=== PATIENT | female | born 2000 | race African-American/Black ===

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

== ENCOUNTER 2020-05-08 23:14 | Emergency (ER) | payer MEDICAID ==
[~2020-05-08] VITALS: Ht 172.7 cm; Wt 60.9 kg
[2020-05-08 23:17] VITALS: BP 121/68
[2020-05-09] MEDS ORDERED: KETOROLAC 30MG/ML VIAL IM ONE
[2020-05-09] MEDS ORDERED: NAPR375T5 MT (00:27)
== END 2020-05-09 00:52 | disposition home or self-care (01) ==
LOC: ER 23:30
DX: M79.18 Myalgia, other site (principal)
CPT/HCPCS: 81025; 96372; 99283; J1885

== ENCOUNTER 2020-05-11 01:13 | Emergency (ER) | payer MEDICAID, OTHER ==
[~2020-05-11] VITALS: Ht 172.7 cm; Wt 55.0 kg
[~2020-05-11 01:13] MED LIST: NAPR375T5 MT
[2020-05-11 01:30] VITALS: BP 131/74
[2020-05-11] MEDS ORDERED: CYCL10TA7 MT (01:45)
[2020-05-11] MEDS ORDERED: KETOROLAC 30MG/ML VIAL IM ONE (01:45)
== END 2020-05-11 02:45 | disposition home or self-care (01) ==
LOC: ER 01:13
DX: M62.838 Other muscle spasm (principal); M25.512 Pain in left shoulder
CPT/HCPCS: 81025; 96372; 99283; J1885

== ENCOUNTER 2020-11-18 16:10 | Emergency (ER) | payer MEDICAID, OTHER ==
[~2020-11-18] VITALS: Ht 177.8 cm; Wt 63.0 kg
[~2020-11-18 16:10] MED LIST changes: +CYCL10TA7 MT
[2020-11-18] MEDS ORDERED: SODIUM CHLORIDE 0.9% 1,000 ML IV ONE (16:45)
[2020-11-18 17:20] LABS: CLARITY URINE CLEAR (CLEAR); COLOR URINE YELLOW (YELLOW); KETONES URINE NEGATIVE (NEGATIVE); LEUKOCYTE ESTERASE URINE NEGATIVE (NEGATIVE); NITRITE URINE NEGATIVE (NEGATIVE); OCCULT BLOOD URINE TRACE (NEGATIVE); PH URINE 6.5 (4.5-8.0); PROTEIN URINE NEGATIVE (NEGATIVE); SPECIFIC GRAVITY URINE 1.003 (1.005-1.030); UROBILINOGEN URINE 0.2 E.U./dL (0.2-1.0)
[2020-11-18 17:41] LABS: BASOPHILS % 0.2 % (0.0-2.0); HEMATOCRIT. 29.7 % (36.0-48.0); HEMOGLOBIN. 10.1 g/dL (12.0-16.0); LYMPHOCYTES % 23.9 % (20.0-50.0); MEAN CORPUSCULAR HEMOGLOBIN 29.5 pg (28.0-32.0); MEAN CORPUSCULAR VOLUME 86.5 fL (81.0-99.0); MEAN PLATELET VOLUME 8.8 fl (7.4-10.4); MONOCYTES % 7.8 % (2.0-8.0); NEUTROPHILS % 67.1 % (40.0-76.0); PLATELET 267 x1000/uL (130-400); RED BLOOD CELL COUNT 3.44 mill/uL (4.2-5.4); RED CELL DISTRIBUTION WIDTH 17.8 % (11.6-14.6)
[2020-11-18 17:43] LABS: CHLORIDE 110 mEq/L (98-107)
[2020-11-18 17:52] LABS: *BARBITURATES SCREEN URINE NEGATIVE (NEGATIVE)
[2020-11-18 17:53] LABS: *AMPHETAMINES SCREEN URINE NEGATIVE (NEGATIVE); *BENZODIAZEPINES SCREEN URINE NEGATIVE (NEGATIVE); *COCAINE SCREEN URINE NEGATIVE (NEGATIVE); METHADONE URINE SCREEN NEGATIVE (NEGATIVE); OPIATES URINE SCREEN NEGATIVE (NEGATIVE)
[2020-11-18 17:54] LABS: PHENCYCLIDINE URINE SCREEN NEGATIVE (NEGATIVE)
[2020-11-18 18:08] LABS: B-HCG QUANTITATIVE 30471 mIU/mL (<3)
[2020-11-18 18:17] LABS: CANNABINOID URINE SCREEN PRESUMTIVE POSITIVE (NEGATIVE)
[2020-11-18 21:21] VITALS: BP 133/78
== END 2020-11-18 21:22 | disposition home or self-care (01) ==
LOC: ER 16:10
DX: O20.0 Threatened abortion (principal); Z3A.01 Less than 8 weeks gestation of pregnancy; Z98.890 Other specified postprocedural states
CPT/HCPCS: 36415; 76801; 76817; 80053; 80305; 81003; 84702; 85025; 86850; 86900; 86901; 99285; J7030